=== PATIENT | female | born 1925 | race Hispanic/Latino ===

== ENCOUNTER 2016-06-14 12:59 | Emergency (ER) | payer MEDICARE ==
[2016-06-14 12:59] VITALS: BMI 18.8
[2016-06-14 13:35] VITALS: BP 138/86; PULSE 70; RESP 18; TEMP 97.9; O2SAT 97
--- NOTE | 2016-06-14 14:15 | C.PDOC ---
History Of Present Illness Patient is an 89 year old female who was sent to the ER by her PMD today after falling 14 hours ago for further evaluation. Patient states she tripped over something in the dark last night and hit her head on the left side, reports a small amount of bleeding. Patient also reports a small laceration to her right thumb that stopped bleeding after applying a bandage to it. Patient notes she is currently taking aspirin and is allergic to tetanus. Patient denies LOC, nausea, vomiting, or pain. - HPI Time Seen by Provider: 06/14/16 13:21 Chief Complaint (Nursing): Trauma History Per: Patient History/Exam Limitations: no limitations Onset/Duration Of Symptoms: Hrs (14) Location Of Injury: Right: Hand (Thumb, laceration), Left: Head (Fell, hit head , minimal bleeding) Past Medical History Reviewed: Historical Data, Nursing Documentation, Vital Signs Vital Signs: Last Vital Signs Temp 97.9 F 06/14/16 13:29 Pulse 70 06/14/16 13:29 Resp 18 06/14/16 13:29 BP 138/86 06/14/16 13:29 Pulse Ox 97 06/14/16 15:49 - Medical History PMH: CHF (PT.DENIES 03/10/16), Fractures (LEFT ANKLE CASTED NO OR), HTN (PT. DENIES 03/10/16), Malignancy (MYEOLMA), Peripheral Edema Surgical History: No Surg Hx - [facility] Procedures CLOSURE SKIN & SUBCUTANEOUS NEC (12/13/13) Family History: States: Unknown Family Hx - Social History Hx Tobacco Use: No Hx Alcohol Use: No Hx Substance Use: No - Immunization History Hx Tetanus Toxoid Vaccination: No Hx Influenza Vaccination: No Hx Pneumococcal Vaccination: No Review Of Systems Cardiovascular: Negative for: Chest Pain Gastrointestinal: Negative for: Nausea, Vomiting, Abdominal Pain Musculoskeletal: Positive for: Hand Pain (Right thumb laceration), Other ( Struck left side of head) Physical Exam - Physical Exam Additional Physical Exam Comments: Constitutional: No acute distress. Head: 1cm laceration left temporal region, no active bleed. Eyes: PERRL. ENT: Moist mucous membranes. Neck: No midline tenderness. Cardiovascular: Regular rate. Radial pulse 2+ bilaterally. Chest: No tenderness. Respiratory: Clear to auscultation bilaterally. GI: Soft. Nontender. Nondistended. Back: No midline tenderness. Musculoskeletal: ROM x4. Small flap laceration right thumb, no active bleeding. Skin: No rash. Neurologic: Alert, no focal deficit. ED Course And Treatment O2 Sat by Pulse Oximetry: 97 (Room air) Pulse Ox Interpretation: Normal Medical Decision Making Medical Decision Making: Will not close laceration due to age. Will not give tetanus due to allergy. Head CT w/o contrast ordered. CT results: FINDINGS: HEMORRHAGE: No intracranial hemorrhage. 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 Mild mild atrophy slightly more central evidenced by disproportionate enlargement of the ventricles compared sulci. VENTRICLES: No obstructive hydrocephalus CALVARIUM: Unremarkable. PARANASAL SINUSES: Unremarkable as visualized. No significant inflammatory changes. MASTOID AIR CELLS: Unremarkable as visualized. No inflammatory changes. OTHER FINDINGS: None. 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 Mild mild atrophy slightly more central evidenced by disproportionate enlargement of the ventricles compared sulci. Patient in no distress during ER stay and wishes to go home. Discharged home, instructed family member to bring patient back for lethargy, vomiting, confusion , or any other problem. Disposition - Disposition Disposition: HOME/ ROUTINE Disposition Time: 15:22 Condition: STABLE Instructions: Head Injury (ED), Laceration Without Closure (ED) - Clinical Impression Clinical Impression: Head injury, Laceration - injury - Scribe Statement The provider has reviewed the documentation as recorded by the Scribe Jeronimo Sommers All medical record entries made by the Scribe were at my direction and personally dictated by me. I have reviewed the chart and agree that the record accurately reflects my personal performance of the history, physical exam, medical decision making, and the department course for this patient. I have also personally directed, reviewed, and agree with the discharge instructions and disposition.
--- NOTE | 2016-06-14 15:15 | CT ---
PROCEDURE: CT HEAD WITHOUT CONTRAST. HISTORY: fall COMPARISON: Comparison made with CT scan brain 06/26/2014. Comparison also made with MRI brain dated 06/27/2014 TECHNIQUE: Axial computed tomography images were obtained through the head/brain without intravenous contrast. Radiation dose: Total exam DLP = 804.65 mGy-cm. This CT exam was performed using one or more of the following dose reduction techniques: Automated exposure control, adjustment of the mA and/or kV according to patient size, and/or use of iterative reconstruction technique. FINDINGS: HEMORRHAGE: No intracranial hemorrhage. 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 Mild mild atrophy slightly more central evidenced by disproportionate enlargement of the ventricles compared sulci. VENTRICLES: No obstructive hydrocephalus CALVARIUM: Unremarkable. PARANASAL SINUSES: Unremarkable as visualized. No significant inflammatory changes. MASTOID AIR CELLS: Unremarkable as visualized. No inflammatory changes. OTHER FINDINGS: None. 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 Mild mild atrophy slightly more central evidenced by disproportionate enlargement of the ventricles compared sulci.
== END 2016-06-14 13:30 | disposition home or self-care (01) ==
LOC: C.ER 12:59
DX: S09.90XA Unspecified injury of head, initial encounter (principal); S61.011A Laceration without foreign body of right thumb without damage to nail, initial encounter; W01.0XXA Fall on same level from slipping, tripping and stumbling without subsequent striking against object, initial encounter; Y92.009 Unspecified place in unspecified non-institutional (private) residence as the place of occurrence of the external cause

== ENCOUNTER 2016-08-30 22:19 | Emergency (ER) | payer MEDICARE ==
[2016-08-30 22:19] VITALS: BMI 18.8
[2016-08-30 22:31] VITALS: TEMP 98.4; O2SAT 99
--- NOTE | 2016-08-30 22:47 | C.PDOC ---
History Of Present Illness pt sith sore throat, occasionally productive cough worsening for about 1 week. Her daughter has the same symptom. tolerating po Time Seen by Provider: 08/30/16 22:47 Chief Complaint (Nursing): Cough, Cold, Congestion History/Exam Limitations: no limitations Onset/Duration Of Symptoms: Days Current Symptoms Are (Timing): Still Present Location Of Pain: Throat, Diffuse Myalgias Sick Contacts (Context): Family Member(s) Associated Symptoms: Sore Throat. denies: Fever, Chills Ear Symptoms: Bilateral: None Severity: Moderate Pain Scale Rating Of: 3 Recent travel outside of the [place]: No Additional History Per: Patient Past Medical History Reviewed: Historical Data, Nursing Documentation, Vital Signs Vital Signs: Last Vital Signs Temp 98.4 F 08/30/16 22:28 Pulse 70 08/30/16 22:28 Resp 16 08/30/16 22:28 BP 162/78 H 08/30/16 22:28 Pulse Ox 99 08/30/16 22:47 - Medical History PMH: CHF (PT.DENIES 03/10/16), Fractures (LEFT ANKLE CASTED NO OR), HTN, Malignancy (MYEOLMA), Peripheral Edema Denies: Chronic Kidney Disease - [facility] Procedures CLOSURE SKIN & SUBCUTANEOUS NEC (12/13/13) Family History: States: No Known Family Hx - Social History Hx Tobacco Use: No Hx Alcohol Use: No Hx Substance Use: No - Immunization History Hx Tetanus Toxoid Vaccination: No Hx Influenza Vaccination: No Hx Pneumococcal Vaccination: No Review Of Systems Constitutional: Negative for: Fever, Chills Eyes: Negative for: Redness ENT: Positive for: Nose Discharge, Throat Pain. Negative for: Ear Pain Cardiovascular: Negative for: Chest Pain, Palpitations Respiratory: Negative for: Shortness of Breath Gastrointestinal: Negative for: Nausea, Vomiting, Abdominal Pain Genitourinary: Negative for: Dysuria Musculoskeletal: Negative for: Back Pain Skin: Negative for: Rash Neurological: Negative for: Weakness Psych: Negative for: Anxiety Physical Exam - Physical Exam Appears: Non-toxic, No Acute Distress Skin: Warm, Dry Head: Normacephalic Eye(s): bilateral: Normal Inspection Ear(s): Bilateral: Normal Nose: No Discharge Oral Mucosa: Moist Tongue: Normal Appearing Throat: Erythema, No Exudate, No Drooling Neck: Trachea Midline, Supple Chest: Symmetrical Cardiovascular: Rhythm Regular Respiratory: No Rales, No Rhonchi, No Wheezing ED Course And Treatment O2 Sat by Pulse Oximetry: 99 Pulse Ox Interpretation: Normal Reevaluation Time: 23:06 Reassessment Condition: Improved Disposition Counseled Patient/Family Regarding: Studies Performed, Diagnosis, Need For Followup - Disposition Referrals: Bran Otto MD [Medical Doctor] - Disposition: HOME/ ROUTINE Disposition Time: 22:47 Condition: FAIR Prescriptions: Azithromycin [Zithromax Tri-Vega] 500 mg PO DAILY #3 tablet Instructions: Upper Respiratory Infection (ED) - Clinical Impression Clinical Impression: Upper respiratory infection
[2016-08-30 23:24] VITALS: BP 112/71; PULSE 75; RESP 18
== END 2016-08-30 23:24 | disposition home or self-care (01) ==
LOC: C.ER 22:19
DX: J06.9 Acute upper respiratory infection, unspecified (principal)

== ENCOUNTER 2017-03-16 11:56 | Emergency (ER) | payer MEDICARE ==
[2017-03-16 11:56] VITALS: BMI 18.8
[2017-03-16 12:34] VITALS: PULSE 71; RESP 18; TEMP 97.7; O2SAT 95
[2017-03-16 15:37] LABS: URINE BACTERIA RARE (<OCC); URINE BILIRUBIN NEGATIVE (NEGATIVE); URINE BLOOD 1+ (NEGATIVE); URINE CLARITY Hazy (Clear); URINE COLOR Yellow (YELLOW); URINE GLUCOSE (UA) NORMAL (Normal); URINE LEUKOCYTE ESTERASE TRACE Leu/uL (Negative); URINE NITRATE NEGATIVE (NEGATIVE); URINE PROTEIN NEGATIVE (NEGATIVE); URINE UROBILINOGEN NORMAL mg/dL (0.2-1.0)
[2017-03-16] MEDS ORDERED: Enalaprilat 2.5 MG/2 ML IV STA (15:38)
--- NOTE | 2017-03-16 15:50 | CT ---
PROCEDURE: CT HEAD WITHOUT CONTRAST. HISTORY: HTN, confused, h/o MM COMPARISON: None available. TECHNIQUE: Axial computed tomography images were obtained through the head/brain without intravenous contrast. Radiation dose: Total exam DLP = 849.15 mGy-cm. This CT exam was performed using one or more of the following dose reduction techniques: Automated exposure control, adjustment of the mA and/or kV according to patient size, and/or use of iterative reconstruction technique. FINDINGS: HEMORRHAGE: No intracranial hemorrhage. BRAIN: No mass effect or edema. Mild diffuse atrophy consistent with age. Moderate periventricular white matter lucency consistent with chronic microvascular ischemic change. Patchy foci of deep white matter lucency are noted as well, again consistent with microvascular ischemic change. There is no evidence of acute infarct. VENTRICLES: Unremarkable. No hydrocephalus. CALVARIUM: Unremarkable. PARANASAL SINUSES: Chronic right maxillary sinusitis. MASTOID AIR CELLS: Unremarkable as visualized. No inflammatory changes. OTHER FINDINGS: None. IMPRESSION: No intracranial mass, hemorrhage or evidence acute infarct. Age related atrophy and chronic white matter ischemic change. Chronic right maxillary sinusitis.
[2017-03-16 16:15] LABS: BASO # 0.1 K/uL (0.0-0.2); BASO % 1.1 % (0.0-2.0); EOS # 0.1 K/uL (0.0-0.7); EOS % 1.2 % (0.0-4.0); HEMOGLOBIN 13.7 g/dL (11.0-16.0); LYMPH % 17.9 % (20.0-40.0); MEAN CELL VOLUME 95.1 fL (81.0-99.0); MEAN CORPUSCULAR HGB CONC 33.6 g/dL (33.0-37.0); MEAN PLATELET VOLUME 8.5 fL (7.2-11.7); MONO # 0.7 K/uL (0.0-0.8); MONO % 11.1 % (0.0-10.0); NEUT % 68.7 % (50.0-75.0); RBC 4.29 Mil/uL (3.80-5.20); RED CELL DISTRIBUTION WIDTH 13.7 % (11.5-14.5); WHITE BLOOD COUNT 5.9 K/uL (4.8-10.8)
[2017-03-16 16:23] LABS: INR 0.9; PROTHROMBIN TIME 10.5 SECONDS (9.7-12.2)
[2017-03-16 16:26] LABS: ALBUMIN 3.4 g/dL (3.5-5.0); ALT/SGPT 26 U/L (9-52); AST/SGOT 19 U/L (14-36); BLOOD UREA NITROGEN 14 mg/dL (7-17); CALCIUM 8.2 mg/dl (8.6-10.4); GFR AFRICAN-AMERICAN > 60; GFR NON-AFRICAN AMERICAN > 60; HDL CHOLESTEROL 47 mg/dL (30-70)
[2017-03-16 16:29] LABS: ALB/GLOB RATIO 1.3 (1.0-2.1)
[2017-03-16] MEDS ORDERED: Enalaprilat 2.5 MG/2 ML ONE (16:31)
[2017-03-16 16:37] LABS: LDL CHOLESTEROL 70 mg/dL (0-129)
[2017-03-16 16:38] LABS: B-TYPE NATRIURETIC PEPTIDE 330 pg/mL (0-900)
--- NOTE | 2017-03-16 17:36 | RAD ---
HISTORY: adm COMPARISON: Chest x-ray performed 03/10/16 TECHNIQUE: Chest, one view. FINDINGS: Right-sided MediPort extends expected location of the SVC. LUNGS: Mild pulmonary venous congestion. Biapical pleural thickening. Please note that chest x-ray has limited sensitivity for the detection of pulmonary masses. PLEURA: No significant pleural effusion identified. No definite pneumothorax . CARDIOVASCULAR: Mild cardiomegaly. Dense atherosclerotic calcifications of the aorta. OSSEOUS STRUCTURES: Degenerative changes. Right 4th and 5th as well as left third and 4th rib fracture deformities, likely chronic ; correlate clinically. VISUALIZED UPPER ABDOMEN: Unremarkable. OTHER FINDINGS: None. IMPRESSION: Mild pulmonary venous congestion. Biapical pleural thickening. Mild cardiomegaly. Right 4th and 5th as well as left third and 4th rib fracture deformities, likely chronic ; correlate clinically.
--- NOTE | 2017-03-16 17:50 | C.PDOC ---
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 Patient also notes that she takes care of her mentally retarded daughter at home. PCP: Bran Otto Time Seen by Provider: 03/16/17 14:57 Chief Complaint (Nursing): Altered Mental Status History Per: Patient History/Exam Limitations: None Onset/Duration Of Symptoms: Days Current Symptoms Are (Timing): Still Present Past Medical History Reviewed: Historical Data, Nursing Documentation, Vital Signs Vital Signs: Last Vital Signs Temp 97.7 F 03/16/17 12:29 Pulse 71 03/16/17 12:29 Resp 18 03/16/17 12:29 BP 180/87 H 03/16/17 18:12 Pulse Ox 95 03/16/17 18:30 - Medical History PMH: CHF (PT.DENIES 03/10/16), Fractures (LEFT ANKLE CASTED NO OR), HTN, Malignancy (MYEOLMA), Peripheral Edema Denies: Chronic Kidney Disease Surgical History: No Surg Hx - [facility] Procedures CLOSURE SKIN & SUBCUTANEOUS NEC (12/13/13) Family History: States: No Known Family Hx - Social History Hx Tobacco Use: No Hx Alcohol Use: No Hx Substance Use: No - Immunization History Hx Tetanus Toxoid Vaccination: No Hx Influenza Vaccination: No Hx Pneumococcal Vaccination: No Review Of Systems Except As Marked, All Systems Reviewed And Found Negative. Constitutional: Negative for: Fever, Chills Neurological: Positive for: Other (poor memory). Negative for: Weakness, Numbness Physical Exam - Physical Exam Appears: Non-toxic, No Acute Distress Skin: Normal Color, Warm Head: Atraumatic, Normacephalic Eye(s): bilateral: Normal Inspection, PERRL Nose: Normal Oral Mucosa: Moist Neck: Supple Chest: Symmetrical Cardiovascular: Rhythm Regular Respiratory: Normal Breath Sounds, No Accessory Muscle Use, No Rales, No Rhonchi , No Wheezing Gastrointestinal/Abdominal: Normal Exam, Soft, No Tenderness Extremity: Normal ROM Neurological/Psych: Oriented x3, Normal Speech, Normal Cognition, Normal Motor, Normal Sensation ED Course And Treatment - Laboratory Results Result Diagrams: 03/16/17 16:11 03/16/17 16:11 Lab Interpretation: Abnormal (Mild hypokalemia, KCL PO given) ECG: Interpreted By Me ECG Rhythm: Sinus Rhythm ECG Interpretation: Normal Rate From EC O2 Sat by Pulse Oximetry: 95 Pulse Ox Interpretation: Normal - Radiology CXR: Interpreted by Me CXR Interpretation: Yes: No Acute Disease - CT Scan/US head Ct Other Rad Studies (CT/US): Interpreted By Me, Radiology Report Reviewed (no acute findings.) Progress Note: lasix, vasotec Reevaluation Time: 17:52 Reassessment Condition: Improved (comfortable, back to normal gait, urinating frequently (lasix given) @ bedside commode without difficulty.) Medical Decision Making Medical Decision Making: pt's mild memory issues seem part of natural aging or dementia but no acute brain findings. Pt complains her gait is unstable and was much improved performing inpatient [facility] and wants to return to same, but refused admission tonight due to daughter @ bedside who needs overnight care herself Explained Rehab in many forms may be performed @ home and may be arranged by PMD Arvind Otto. Claims to have stable enough gait (unchanged over past 2 months) and help at home (daughter lives w her) to go home safely, despite offered admission. Disposition Doctor Will See Patient In The: Office Counseled Patient/Family Regarding: Studies Performed, Diagnosis - Disposition Referrals: Bran Otto MD [Medical Doctor] - Disposition: HOME/ ROUTINE Disposition Time: 17:55 Condition: GOOD Additional Instructions: continue Vasotec 20 mg daily for your hypertension Have BP checked in 1-2 weeks Gait Abnormalities Discuss with Dr. Otto- consider Rehab @ home Falls prevention with your daughter @ home. Call Dr. Otto tomorrow to make an appointment. Prescriptions: Enalapril Maleate [Vasotec] 20 mg PO DAILY #30 tab Instructions: Fall Prevention for Older Adults (ED), Fall Prevention (ED) Forms: [facility] (Ukrainian) - Clinical Impression Clinical Impression: Memory change, Gait abnormality - Scribe Statement The provider has reviewed the documentation as recorded by the Raghavendra Michelle Provider Attestation: All medical record entries made by the Naviibe were at my direction and personally dictated by me. I have reviewed the chart and agree that the record accurately reflects my personal performance of the history, physical exam, medical decision making, and the department course for this patient. I have also personally directed, reviewed, and agree with the discharge instructions and disposition.
[2017-03-16] MEDS ORDERED: Potassium Chloride 10 mEq ER Tab PO STA (17:51)
[2017-03-16 18:13] VITALS: BP 180/87
--- NOTE | 2017-03-17 23:07 | CARD ---
APPROVED REPORT EKG Measurement Heart [id number] <Conclusion> Sinus rhythm with occasional premature ventricular complexes Nonspecific ST and T wave abnormality Abnormal ECG
== END 2017-03-16 19:26 | disposition home or self-care (01) ==
LOC: C.ER 11:56
DX: R41.82 Altered mental status, unspecified (principal); R26.9 Unspecified abnormalities of gait and mobility; I10 Essential (primary) hypertension; Z85.79 Personal history of other malignant neoplasms of lymphoid, hematopoietic and related tissues
CPT/HCPCS: 70450; 71045; 80053; 80061; 81001; 83036; 83880; 84484; 85025; 85610; 85730; 93005; 96374; 99285; J1940